=== PATIENT | male | born 1950 | race Caucasian/White ===

== ENCOUNTER 2020-10-07 10:41 | Outpatient (CLI) | payer MEDICARE | END 2020-10-07 10:42 | disposition home or self-care (01) | LOC: BICRAD 10:41 | PROVIDERS: ATTEND Internal Medicine | DX: R05 Cough (principal) | CPT/HCPCS: 71046 ==

== ENCOUNTER 2022-07-10 10:32 | Outpatient (CLI) | payer MEDICARE ==
[2022-07-10 12:25] LABS: Hemoglobin 11.2 g/dL (13.5-17.5); INR-International Normal Ratio 0.9; Mean Corpuscular HGB CONC 33.3 g/dL (32.0-36.0); Mean Corpuscular Hemoglobin 30.9 pg (27.0-33.0); Mean Corpuscular Volume 92.8 fl (81.2-95.1); Mean Platelet Volume 8.5 fl (7.4-10.4); PTT 27.9 sec (22.0-33.0); Platelet Count 228 10x3/uL (150-450); Prothrombin Time 10.3 sec (9.5-12.1); Red Blood Cell (RBC) Count 3.62 10x6/uL (4.32-5.72); White Blood Cell (WBC) Count 5.1 10x3/uL (3.5-10.5)
[2022-07-10 13:07] LABS: Anion Gap 16 mmol/L (10-20); BUN (Urea Nitrogen) 25 mg/dL (8.4-25.7); Calc. Creatinine Clearance 0 mL/min (70-130); Calcium 9.5 mg/dL (7.8-10.44); Carbon Dioxide 24 mmol/L (23-31); Chloride 103 mmol/L (98-107); Estimated GFR 50; Glucose 208 mg/dL (83-110); Potassium 4.9 mmol/L (3.5-5.1); Sodium 138 mmol/L (136-145)
[2022-07-10 15:09] LABS: Bilirubin Neg (Negative); Blood, Urine 50 (Negative); Clarity Cloudy (Clear); Glucose, Urine (Dipstick) 50 mg/dL (Negative); Ketone, Urine Negative (Negative); Leukocyte 500 (Negative); Nitrite Negative (Negative); Protein, Urine (Dipstick) 500 mg/dl (Neg-Trace); Urobilinogen Normal mg/dL (Less than 2)
[2022-07-10 15:15] LABS: Bacteria/HPF 2+ HPF (None Seen); Squamous Epithelial 0-3 HPF (0-3); Transitional Epithelial 0-3 HPF (None Seen); WBC/HPF Greater Than 50 HPF (0-3)
[2022-07-10 15:17] LABS: Mucous/LPF 1+ LPF (<2+)
== END 2022-07-10 10:33 | disposition home or self-care (01) ==
LOC: LABBT 10:32
PROVIDERS: ATTEND Family Medicine
DX: Z01.818 Encounter for other preprocedural examination (principal); C66.9 Malignant neoplasm of unspecified ureter; R30.0 Dysuria; N20.0 Calculus of kidney; N50.0 Atrophy of testis; R39.15 Urgency of urination; N40.1 Benign prostatic hyperplasia with lower urinary tract symptoms; R35.0 Frequency of micturition
CPT/HCPCS: 80048; 81001; 85027; 85610; 85730; 87086; 93005; 93010

== ENCOUNTER 2022-07-20 06:37 | Day surgery (SDC) | payer MEDICARE ==
[2022-07-19 14:25] VITALS: BMI 25.7
[2022-07-20] MEDS ORDERED: Levofloxacin 500 mg/D5W 100 ml Premix Bag ONE (08:34)
[2022-07-20] MEDS ORDERED: Dexamethasone 20 MG/5 ML VIAL ONE (08:55)
[2022-07-20] MEDS ORDERED: PROPOFOL 200 MG/20 ML VIAL ONE (08:55)
[2022-07-20] MEDS ORDERED: Ondansetron PF 4 MG/2 ML Vial ONE (08:55)
[2022-07-20] MEDS ORDERED: Oxybutynin 5 MG TAB ONE (09:52)
[2022-07-20] MEDS ORDERED: Phenazopyridine HCl 100 MG TAB ONE (09:52)
== END 2022-07-20 14:11 | disposition home or self-care (01) ==
LOC: SDC 06:37
PROVIDERS: ATTEND Urology
PROC: 0T7D8DZ Dilation of Urethra with Intraluminal Device, Via Natural or Artificial Opening Endoscopic (ICD-10-PCS; principal; 2022-07-20)
PROC: 0T5B8ZZ Destruction of Bladder, Via Natural or Artificial Opening Endoscopic (ICD-10-PCS; 2022-07-20)
DX: N40.1 Benign prostatic hyperplasia with lower urinary tract symptoms (principal); N32.89 Other specified disorders of bladder; N13.8 Other obstructive and reflux uropathy; R39.15 Urgency of urination; R35.0 Frequency of micturition; N50.0 Atrophy of testis; M19.90 Unspecified osteoarthritis, unspecified site; I11.9 Hypertensive heart disease without heart failure; E11.9 Type 2 diabetes mellitus without complications; E78.00 Pure hypercholesterolemia, unspecified; I25.2 Old myocardial infarction; I35.0 Nonrheumatic aortic (valve) stenosis; G43.909 Migraine, unspecified, not intractable, without status migrainosus; Z85.54 Personal history of malignant neoplasm of ureter; Z86.73 Personal history of transient ischemic attack (TIA), and cerebral infarction without residual deficits; Z87.891 Personal history of nicotine dependence; Z79.82 Long term (current) use of aspirin; Z79.84 Long term (current) use of oral hypoglycemic drugs; Z79.899 Other long term (current) drug therapy; Z88.2 Allergy status to sulfonamides; Z91.040 Latex allergy status
CPT/HCPCS: 52235; C9740; 88305; J1956; L8699